=== PATIENT | male | born 1995 | race Caucasian/White ===

== ENCOUNTER 2018-11-21 14:10 | Emergency (ER) | payer OTHER ==
[~2018-11-21] VITALS: Ht 177.8 cm; Wt 86.0 kg
[2018-11-21] MEDS ORDERED: KETOROLAC 30 MG/ML VIAL (J1885) IM ONE (14:30)
--- NOTE | 2018-11-21 14:57 | REP ---
CT Head without contrast HISTORY: Trauma COMPARISON: None There is no intraparenchymal hemorrhage, acute infarct, mass or midline shift. The ventricular system is normal in appearance. There is no extra cerebral collection. There is no fracture. Mucosal thickening is present in the ethmoid sinuses. IMPRESSION: There is no intracranial lesion. Electronically Signed by Orville Su MD 11/21/2018 02:48 P
--- NOTE | 2018-11-21 15:04 | REP ---
CT cervical spine without contrast HISTORY: Trauma COMPARISON: None There is no acute fracture or subluxation. There is no disc bulge or herniation. The spinal canal and neural foramina are patent. The intervertebral discs and vertebral bodies are normal in height. IMPRESSION: There is no acute fracture or subluxation. Electronically Signed by Orville Su MD 11/21/2018 02:55 P
--- NOTE | 2018-11-21 15:25 | REP ---
Right knee series: Four views. History: Trauma. Findings: Four views right knee demonstrate normal bones, joints, and soft tissues. No sunrise view is presented. Impression: Negative four view right knee radiographs. Electronically Signed by Sae Davis MD 11/21/2018 03:17 P
--- NOTE | 2018-11-21 15:26 | REP ---
Pelvis right hip: Three views. History: Trauma. Findings: AP and frog-leg views of the hip and AP view of the pelvis show an intact bony pelvic ring. No hip fracture is seen. Femoral heads are smooth and rounded and hip joint spaces are preserved. Sacrum SI joints are intact . Impression: No fracture seen. Electronically Signed by Sae Davis MD 11/21/2018 03:18 P
--- NOTE | 2018-11-21 16:42 | REP ---
Thoracic spine series: Four views. History: Trauma. Findings: Thoracic vertebral body heights are preserved. Alignment is normal. Pedicles and posterior elements are intact. No paravertebral soft-tissue mass is seen. Swimmer's lateral view shows no additional abnormality. There is a minimal dextroconvex curvature. Impression: Negative thoracic spine radiographs. Electronically Signed by Sae Davis MD 11/21/2018 05:28 P
[2018-11-21 17:20] VITALS: BP 120/67
== END 2018-11-21 17:33 | disposition home or self-care (01) ==
LOC: M ED 14:10 → EDBD 14:10 → M ED 17:33
DX: S16.1XXA Strain of muscle, fascia and tendon at neck level, initial encounter (principal); S29.012A Strain of muscle and tendon of back wall of thorax, initial encounter; T14.8XXA Other injury of unspecified body region, initial encounter; V49.59XA Passenger injured in collision with other motor vehicles in traffic accident, initial encounter; Y92.410 Unspecified street and highway as the place of occurrence of the external cause
CPT/HCPCS: 70450; 72072; 72125; 73502; 73564; 96372; 99284; J1885

== ENCOUNTER 2019-02-17 16:33 | Emergency (ER) | payer OTHER ==
[~2019-02-17] VITALS: Ht 177.8 cm; Wt 88.6 kg
[2019-02-17 16:33] VITALS: BP 149/71
[2019-02-17] MEDS ORDERED: NAPROXEN 250 MG TAB PO ONE (18:15)
[2019-02-17] MEDS ORDERED: NAPR-837 PO (18:19)
== END 2019-02-17 18:28 | disposition home or self-care (01) ==
LOC: M ED 16:33
DX: M25.572 Pain in left ankle and joints of left foot (principal); G89.29 Other chronic pain; Z87.81 Personal history of (healed) traumatic fracture